=== PATIENT | female | born 1970 | race African-American/Black ===

== ENCOUNTER 2021-04-05 19:45 | Inpatient (IN) | payer OTHER ==
[~2021-04-05] VITALS: Ht 162.6 cm; Wt 72.6 kg
--- NOTE | ~2021-04-05 | EMS ---
[address] [address] EMS Patient Care Report Name: ELTON LOPEZ Room #: 170-7 ADM IN M.R.#: [id number] Admission: 04/05/21 Attend Phys: Jennifer Aguirre MD Discharge: Date of : 74 Report #: [id number] THIS REPORT FOR: //name// Report Transmitted: 04/05/2021 20:29 EMS Care Summary [place], [place]/[facility] Incident [id number] @ 04/05/2021 19:17 Incident Location [address] [place] [id number] Patient ELTON LOPEZ Female, 50 Years 1970 Patient Address [address] [place] [address] Chief Complaint SUICIDE ATTEMPT Disposition Transported No Lights/[place] Dispatch Reason Breathing Problem Transported To [facility] Narrative M528 ARRIVES TO FIND 50 Y/O F PT HAVING TAKEN APPROXIMATELY 30 25MG TABLETS OF DIPHENHYDRAMINE IN AN ATTEMPT TO END HER LIFE. ASSESSMENTS AND TRETAMENTS NOTED. PT AMBULATORY AND WALKS TO COT. PT MOVED TO AMBULANCE. PT TRANSPORTED. M528 ARRIVES AT DESTINATION. PT MOVED TO ROOM IN ED. PT SLIDES FROM COT TO BED IN ROOM. PT CARE TRANSFERRED. M528 RETURNS TO SERVICE. Initial Vitals @19:28GCS: 15, Assessments [address] [address] EMS Patient Care Report Name: ELTON LOPEZ Room #: 170-7 ADM IN .R.#: [id number] Admission: 04/05/21 Attend Phys: Jennifer Aguirre MD Discharge: Date of : 74 Report #: [id number] @19:28MENTAL:Event Oriented,Time Oriented,Person Oriented,Place Oriented,SKIN:HEENT:LUNG SOUNDS:ABDOMEN:PELVIS//GI:EXTREMITIES:PULSE:Radial: 3+ Bounding,NEURO:@19:38MENTAL:Other,SKIN:No Abnormalities,HEENT:Head/Face: No Abnormalities,Eyes: No Abnormalities,Neck/Airway: No Abnormalities,LUNG SOUNDS:General: No Abnormalities,Left Upper: No Abnormalities,Right Upper: No Abnormalities,Left Lower: No Abnormalities,Right Lower: No Abnormalities,ABDOMEN:General: No Abnormalities,Left Upper: No Abnormalities,Right Upper: No Abnormalities,Left Lower: No Abnormalities,Right Lower: No Abnormalities,PELVIS//GI:No Abnormalities,EXTREMITIES:Left Arm: No Abnormalities,Right Arm: No Abnormalities,Left Leg: No Abnormalities,Right Leg: No Abnormalities,PULSE:NEURO:No Abnormalities, Impression Suicide attempt Procedures @19:28ALS Assessment@19:32Saline Lock 0cc (18 ga) Site: Antecubital-LeftResponse: UnchangedSucceeded@19:303-Lead ECGResponse: UnchangedSucceeded Timeline 19:15,Call Received 19:15,Dispatch Notified 19:17,Dispatched 19:17,En Route 19:25,On Scene 19:27,At Patient 19:28,ALS Assessment, 19:28,BP: / M,PULSE: ,RR: R,SPO2: Ox,ETCO2: ,BG: ,PAIN: ,GCS: 15, 19:30,3-Lead ECG,Response: UnchangedSucceeded, 19:32,Saline Lock 0cc 18 ga Site: Antecubital-Left,Response: UnchangedSucceeded, 19:35,Depart Scene 19:44,At Destination 20:04,Call Closed Disclaimer v1.1 Copyright 2020 [employer] This EMS Care Summary contains data elements from the applicable legal record (which may be displayed differently). It is designed to provide pertinent information for the following purposes: continuity of care, clinical quality, and state data reporting. The complete legal record is available to ED staff and administrators of the receiving hospital in [employer]'s Patient Tracker. All data is provided "as is."
[2021-04-05 19:46] VITALS: BP 158/101
--- NOTE | 2021-04-05 19:58 | NUR ---
AFFIDAVIT FILLED OUT BY EMS
[2021-04-05 20:22] LABS: ABSOLUTE NEUTROPHILS 6.7 thou/uL (1.4-8.2); BASOPHILS 0.1 % (0.0-2.0); HEMATOCRIT 38.6 % (37.0-47.0); HEMOGLOBIN 13.1 gm/dL (12.0-15.0); LYMPHOCYTES 3.9 % (24.0-44.0); MCH 33.1 pg (26.0-34.0); MCV 97.5 fL (80.0-100.0); MONOCYTES 1.2 % (1.0-8.0); POLYS 94.8 % (36.0-66.0); RBC 3.95 mil/uL (4.20-5.00); RDW 14.2 % (10.5-14.5); WBC 8.2 thou/uL (4.0-11.0)
[2021-04-05 20:23] LABS: URINE BILIRUBIN NEGATIVE (Negative); URINE BLOOD 1+ (Negative); URINE CLARITY CLOUDY; URINE COLOR YELLOW; URINE GLUCOSE-RANDOM* NEGATIVE (Negative); URINE KETONES NEGATIVE (Negative); URINE PROTEIN (DIPSTICK) NEGATIVE (Negative); URINE SPECIFIC GRAVITY >= 1.030 (1.005-1.035); URINE UROBILINOGEN 0.2 E.U./dl (0.2-1.0)
[2021-04-05 20:28] LABS: ANION GAP 12 mmol/L (7-16); BUN 9 mg/dL (7-18); CALCIUM 9.9 mg/dL (8.5-10.1); CHLORIDE 103 mmol/L (98-107); CO2 25 mmol/L (21-32); CREATININE 1.2 mg/dL (0.6-1.0); GLUCOSE 169 mg/dL (74-106); POTASSIUM 3.7 mmol/L (3.5-5.1); SODIUM 140 mmol/L (136-145)
[2021-04-05 20:32] LABS: AMP/METHAMP Negative (Negative); BARBITURATES Negative (Negative); BENZODIAZEPINES Negative (Negative); COCAINE Negative (Negative); METHADONE Negative (Negative); OPIATES Negative (Negative); PCP POSITIVE (Negative); URINE LEUKOCYTES-REFLEX 1+ (Negative); URINE NITRITE-REFLEX POSITIVE (Negative)
[2021-04-05 20:36] LABS: ALBUMIN 3.8 g/dL (3.4-5.0); SALICYLATE < 2.8 mg/dL (2.8-20.0); SGOT 30 U/L (15-37); SGPT 34 U/L (14-59); TOTAL BILIRUBIN 0.3 mg/dL (0.2-1.0); TOTAL PROTEIN 7.4 g/dL (6.4-8.2); TROPONIN-I <0.06 ng/mL (<0.06)
[2021-04-05 20:41] LABS: BACTERIA-REFLEX >30 Many /HPF (None Seen); CASTS None Seen /LPF (None Seen); CRYSTALS None Seen /LPF (None Seen); MUCUS 0-3 Light strn/LPF (None Seen); SQUAMOUS >10 Many /LPF (0-3); URINE RBC 1-2 Rare /HPF (NONE SEEN)
[2021-04-05 20:42] LABS: URINE WBC-REFLEX 6-15 Few /HPF (0-5)
[2021-04-05 21:07] LABS: PLATELET COUNT 199 thou/uL (150-400); PLATELET ESTIMATE NORMAL
[2021-04-06] VITALS (14 sets, daily range): BP systolic 113–148; BP diastolic 74–98
[2021-04-06 05:14] LABS: CALCIUM 9.3 mg/dL (8.5-10.1); POTASSIUM 3.9 mmol/L (3.5-5.1)
--- NOTE | 2021-04-06 06:31 | NUR ---
Patient arrived to ICU form ER at 0500. Patient awake and alert and able to participate in admission. Heart rate and rhythm stable. Blood pressure stable. Adequate oxygenation on room air. Up to BSC to void. C/O headache and some nausea. Tylenol and Zofran given. Sitter at bedside. Pt's Benjamin called this am. Patient gave permission to talk to him. Gave update in patient condition and explained visiting hours. Patient says she still feels very depressed but not actively suicidal. See documentation on interventions for assessment details.
--- NOTE | 2021-04-06 09:36 | NUR ---
THE LEFT UPPER ARM BASILIC WAS WIDLEY PATENT. A #4F MIDLINE WAS PLACED PER HOSPITAL POLICY AFTER DISCUSSING RISKS VS BENIFITS OF PLACEMENT (DVT, VESSEL WALL DAMAGE AND INFECTION). THE LINE WAS TRIMMED TO 17CM AND ADVANCED WITHOUT DIFFICULTY. SECURED AND RELEASED FOR USE
--- NOTE | 2021-04-06 09:49 | NUR ---
PT IS PROGRESSING TOWARDS DISCHARGE AT THIS TIME, WAS REMINDED BY RN WHY SHE IS BEING MONITORED 1:1 AND FOR THE DURATION OF THE HOSPITALIZATION UNTIL CLEARED BY PSYCHIATRIST, PT IS NOT TO HAVE ANY VISITORS/PHONES/PERSONAL ITEMS DUE TO CONCERN OVER PT SAFETY. DAUGHTER DORI WAS NOTFIED. PER PT, ONLY TWO PEOPLE THAT SHE WANTS US TO UPDATE ARE DORI(DTR) AND CARLY (PT'S MOTHER). RN SPOKE WITH THE PT AND FORMULATED A PLAN FOR CALLING HER JOB TO NOTIFY WHY LEAVE OF ABSCENCE. DAUGHTER TO LEAVE NOTEBOOK AT THE ER CONTAINING INFO, RN TO GO PICK IT UP, PT TO IDENTIFY NUMBER FOR WORK, RN TO CALL WORK IN HER PLACE TO NOTIFY WHY LEAVE OF ABSCENCE. MIDLINE ACCESS WAS STARTED FOR THE PT R/T PT COMPLAININ OF LAC IV SITE HURTING. PT AT THIS TIME IS AGITATED AND FUSSY R/T CONSTANT SUPERVISION AND RESTRICTIONS. RN DID EXPLAIN WHY THESE MEASURES ARE APPROPERIATE, USING THERAPEUTIC COMMUNICATION. CONTINUING TO MONITOR AND PROVIDE INTERVENTIONS NECESSARY.
--- NOTE | 2021-04-06 11:16 | NUR ---
PT RESTING IN BED/WATCHING TV AT THIS TIME. PATIENT BREATHING NORMALLY ON ROOM AIR, HR NSR BETWEEN 90-100. 1:1 SITTER AT BEDSIDE WITH PATIENT. ALL SI PRECAUTIONS ARE IN PLACE. PATIENT ATE FULL BREAKFAST, APPEARS TO BE IN BETTER SPIRITS AT THIS TIME.
--- NOTE | 2021-04-06 16:32 | NUR ---
PT RESTING COMFORTABLY IN BED, WATCHING TV. PATIENT C/O OF NO PAIN AT THIS TIME, IS BREATHING NORMALLY ON ROOM AIR, HR IN 90'S NSR WITH NORMAL B/P. PT ABLE TO CONSUME LUNCH, AMBULATES UNDER OWN POWER TO RESTROOM. PT REMAINS IN PRESCENE OF 1:1 SITTER.
--- NOTE | 2021-04-07 06:29 | NUR ---
Pt sleeping-awakens easily. cont to deny any ideation of self harm at this time. pleasant in conversation. sitter at bedside. cont plan of care
[2021-04-07 08:16] VITALS: BP 138/87
--- NOTE | 2021-04-07 11:00 | NUR ---
Discussed during am unite rounds and los with hospitalist, has 1 to 1 sitter. Pysch will eval. Will cont. following as needed for dc needs.
--- NOTE | 2021-04-07 11:03 | NUR ---
Will see recommendation from dr liu. Noted she had some stress from divorce. Reports no thoughts of harming her self and not every tried to hurt her self in the past. Will cont following as needed for dc needs.
[2021-04-07] MEDS ORDERED: CEPHALEXIN500 MG PO (13:29)
--- NOTE | 2021-04-07 14:59 | EKG ---
[address] [place] [address] ELECTROCARDIOGRAM REPORT Name: ELTON LOPEZ Room #: 248-P ADM IN M.R.#: [id number] Admission: 04/05/21 Attend Phys: Anayeli Zhang MD Discharge: Date of : 74 Report #: [id number] [facility] ED Test Date: 2021-04-05 Test Time: 19:56:27 Pat Name: ELTON LOPEZ Department: Room: 248 Gender: F Stock Taker: LORI : 1970 Requested By: Anayeli Zhang Order Number: [id number] MD: Armin Rendon Measurements Intervals [place] Rate: 115 P: 62 FL: 158 QRS: 37 QRSD: 75 T: -55 QT: 372 QTc: 515 Interpretive Statements Sinus tachycardia Multiple ventricular premature complexes LAE, consider biatrial enlargement Borderline T abnormalities, diffuse leads Prolonged QT interval No previous ECG available for comparison Electronically Signed On 04-07-2021 14:59:30 CDT by Armin Rendon [email or web address] <ELECTRONICALLY SIGNED> By: Armin Rendon MD, [facility] 04/07/21 [id number] Armin Rendon MD, FAC /EPI
[2021-04-07 15:21] VITALS: BP 144/81
[2021-04-07 17:48] VITALS: BP 144/81
--- NOTE | 2021-04-07 18:08 | NUR ---
Nurse talked with patient earlier today. She expressed she does not have any suicidal ideations, and does not want to harm herself. She feels safe going home. Discharge instructions reviewed with her and Dr. George explained follow up with her prior to discharge. In addition to her belongings that were documented, patient also has a necklace that she is taking home.
[2021-04-07 19:10] VITALS: BP 144/81
== END 2021-04-07 19:10 | disposition home or self-care (01) | DRG 918 ==
LOC: ER 19:45 → EROBS 21:04 → ICU 21:04
PROVIDERS: Emergency Medicine; Nurse Practitioner Family; ADMIT Hospitalist; ATTEND Hospitalist
DX: T45.0X2A Poisoning by antiallergic and antiemetic drugs, intentional self-harm, initial encounter (principal); R45.851 Suicidal ideations; Z20.822 Contact with and (suspected) exposure to COVID-19; F32.9 Major depressive disorder, single episode, unspecified; F41.9 Anxiety disorder, unspecified; G43.909 Migraine, unspecified, not intractable, without status migrainosus; J45.909 Unspecified asthma, uncomplicated; Z88.8 Allergy status to other drugs, medicaments and biological substances; Y92.89 Other specified places as the place of occurrence of the external cause
CPT/HCPCS: 10078; 27000